=== PATIENT | female | born 1995 | race Hispanic/Latino ===

== ENCOUNTER 2021-06-20 20:34 | Emergency (ER) | payer SELFPAY ==
[2021-06-20] MEDS ORDERED: Cyclobenzaprine 10 MG TAB ONE (21:12)
[2021-06-20] MEDS ORDERED: Ketorolac Tromethamine 30 MG/ML VIAL ONE (21:12)
== END 2021-06-20 21:17 | disposition home or self-care (01) ==
LOC: CSHERS 20:34
DX: S29.012A Strain of muscle and tendon of back wall of thorax, initial encounter (principal); X58.XXXA Exposure to other specified factors, initial encounter
CPT/HCPCS: 96372; 99283; J1885